=== PATIENT | female | born 1985 | race Two or more races ===

== ENCOUNTER → 2018-05-14 | Outpatient (CLI) | payer BC ==
[~2018-05-14] MED LIST: DOCU-131 PO; IBUP-1222 PO; LEVO25TA4 PO; OXYC-302 PO; PNV91TAB3 PO
== END | disposition home or self-care (01) ==
LOC: CFH 13:01
PROVIDERS: ATTEND Obstetrics & Gynecology
DX: N64.4 Mastodynia (principal)
CPT/HCPCS: 76642; 77066